=== PATIENT | male | born 1985 | race Two or more races ===

== ENCOUNTER 2018-08-27 08:20 | Emergency (ER) | payer MEDICAID ==
[~2018-08-27] VITALS: Ht 172.7 cm; Wt 105.0 kg
[2018-08-27 08:21] VITALS: BP 145/91
[2018-08-27] MEDS ORDERED: AZIT500T PO (08:50)
[2018-08-27] MEDS ORDERED: HYDR-3965 PO (08:52)
[2018-08-27] MEDS ORDERED: HYDROcodone/acetaminophen 10/325mg tab PO ONE (09:00)
== END 2018-08-27 09:11 | disposition home or self-care (01) ==
LOC: ER 08:20
DX: H66.92 Otitis media, unspecified, left ear (principal); R07.89 Other chest pain; Z88.0 Allergy status to penicillin; Z79.2 Long term (current) use of antibiotics; Z79.899 Other long term (current) drug therapy
CPT/HCPCS: 99283

== ENCOUNTER 2023-06-23 00:27 | Emergency (ER) | payer MEDICAID ==
[~2023-06-23] VITALS: Ht 172.7 cm; Wt 92.4 kg
[2023-06-23] MEDS ORDERED: HYDROmorphone 1 mg/ml syringe IM ONE (01:00)
[2023-06-23] MEDS ORDERED: ibuprofen tablet 400 MG TABLET PO ONE (01:00)
[2023-06-23] MEDS ORDERED: ondansetron 4mg rapidly disintigrating tab PO ONE (01:00)
[2023-06-23] MEDS ORDERED: clindamycin 150mg capsule PO ONE (01:00)
[2023-06-23] MEDS ORDERED: NAPR-56 PO (01:05)
[2023-06-23] MEDS ORDERED: CLIN-143 PO (01:05)
[2023-06-23] MEDS ORDERED: ACET-812 PO (01:05)
[2023-06-23] MEDS ORDERED: BENZ9GEL3 BC (01:05)
[2023-06-23 01:38] VITALS: BP 130/78; PULSE 89; RESP 18; TEMP 98.2; O2SAT 97
== END 2023-06-23 01:40 | disposition home or self-care (01) ==
LOC: ER 00:28
DX: K08.89 Other specified disorders of teeth and supporting structures (principal)
CPT/HCPCS: 96372; 99284; J1170

== ENCOUNTER 2024-09-22 11:28 | Emergency (ER) | payer MEDICAID ==
[~2024-09-22] VITALS: Ht 172.7 cm; Wt 77.6 kg
[~2024-09-22 11:28] MED LIST: ACET-812 PO; BENZ9GEL3 BC
[2024-09-22 12:47] LABS: BASOPHILS % (AUTO) 0.2 % (0-1); EOSINOPHILS # (AUTO) 0.2 X10'3 (0-0.9); EOSINOPHILS % (AUTO) 2.9 % (0-6); LYMPHOCYTES # (AUTO) 1.6 X10'3 (1.1-4.8); LYMPHOCYTES % (AUTO) 23.4 % (21-51); MEAN PLATELET VOLUME 7.2 FL (7.4-10.4); MONOCYTES # (AUTO) 0.7 X10'3 (0-0.9); MONOCYTES % (AUTO) 10.1 % (2-12); NEUTROPHILS # (AUTO) 4.4 X10'3 (1.8-7.7); NEUTROPHILS % (AUTO) 63.4 % (42-75); PLATELET COUNT 233 X10'3 (140-440)
[2024-09-22 13:05] LABS: ALANINE AMINOTRANSFERASE 128 U/L (12-78); ALBUMIN 4.2 G/DL (3.4-5.0); ALKALINE PHOSPHATASE 108 IU/L (46-116); ANION GAP 8 (8-16); ASPARTATE AMINO TRANSFERASE 90 U/L (10-37); BILIRUBIN,TOTAL 1.3 MG/DL (0.1-1.0); BLOOD UREA NITROGEN 10 MG/DL (7-18); BUN/CREATININE RATIO 13.2 (10.0-20.0); CALCIUM 9.8 MG/DL (8.5-10.1); CHLORIDE 99 MMOL/L (99-107); CREATININE 0.76 MG/DL (0.60-1.10); GLUCOSE 184 MG/DL (70-104); LIPASE 47 U/L (16-77); POTASSIUM 3.8 MMOL/L (3.5-5.1); SODIUM 139 MMOL/L (135-145); TOTAL CARBON DIOXIDE 31.6 MMOL/L (24-32); TOTAL PROTEIN 8.4 G/DL (6.4-8.2); eCRCL 126 ML/MIN; eGFR > 90 ML/MIN
[2024-09-22 13:37] LABS: MEAN CORPUSCULAR HEMOGLOBIN 34.7 PG (27.0-31.0); MEAN CORPUSCULAR VOLUME 99.4 FL (78-98); RED BLOOD COUNT 5.23 X10'6 (4.70-6.10); RED CELL DISTRIBUTION WIDTH 12.8 % (11.5-14.5)
[2024-09-22 13:40] LABS: HEMOGLOBIN 18.2 g/dl (14.0-17.9)
[2024-09-22 14:49] VITALS: BP 146/85; PULSE 100; RESP 15; TEMP 98.3; O2SAT 99
== END 2024-09-22 14:50 | disposition home or self-care (01) ==
LOC: ER 11:29
DX: R10.12 Left upper quadrant pain (principal); E11.9 Type 2 diabetes mellitus without complications; Z88.0 Allergy status to penicillin
CPT/HCPCS: 36415; 74176; 80053; 83690; 85025; 99284

== ENCOUNTER 2025-04-17 06:53 | Inpatient (IN) | payer MEDICAID ==
[~2025-04-17] VITALS: Ht 177.8 cm; Wt 70.8 kg
[2025-04-17 07:18] LABS: MEAN PLATELET VOLUME 6.9 FL (7.4-10.4); RED CELL DISTRIBUTION WIDTH 12.8 % (11.5-14.5)
--- NOTE | 2025-04-17 07:22 | RADIOLOGY REPORT ---
CHEST RADIOGRAPH Indication: CP Technique: Single frontal view of the chest was obtained COMPARISON: None FINDINGS: Lines and Tubes: None Lungs: Clear Pleura: No effusion. No pneumothorax. Cardiomediastinal contours: Unremarkable Bones: Unremarkable IMPRESSION: 1. No acute disease.
[2025-04-17 07:31] LABS: CREATININE 0.78 MG/DL (0.60-1.10); TOTAL CARBON DIOXIDE 33.1 MMOL/L (24-32); eCRCL 126 ML/MIN; eGFR > 90 ML/MIN
--- NOTE | 2025-04-17 07:35 | ELECTROCARDIOGRAPH REPORT ---
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 Mandi Quesada Measurements Intervals [place] Rate: 87 P: 23 OR: 127 QRS: 66 QRSD: 80 T: 71 QT: 341 QTc: 411 Interpretive Statements Sinus rhythm ST elev, probable normal early repol pattern Electronically Signed On 04-17-2025 7:54:[address] Mandi Quesada Please click the below link to view image of tracing.
[2025-04-17] MEDS: normal saline 1000ML IV soln IVB ONE (07:55)
--- NOTE | 2025-04-17 08:14 | Physician Documentation ---
History of Present Illness ~ Chief Complaint: Chest Pain Stated Complaint: CHEST PAINS Time Seen by MD: 06:59 OK to notify your PCP?: Yes Primary Medical Doctor: Dr. Haney Source: patient, RN/, RN notes reviewed, old records Mode of Arrival: Ambulatory Exam Limitations: no limitations HPI This 39-year-old patient was brought into bed 13 seen upon arrival. Patient states he has been off his medications for over a month. He takes insulin. Patient has been doing relatively well denies any polydipsia polyuria. This morning he woke up with some chest pain at rest felt dizzy having palpitations feeling sick also little bit nauseated but mostly chest pressure chest pain nonradiating. Patient states that he drinks daily including 15 beers which is a bit more than his baseline otherwise there is no new differences in his health. He is here for evaluation. He has no history of pancreatitis or prior problems with his alcoholism. Patient has no prior cardiac history. 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 Patient has no primary care physician at this time Medication Reconciliation Allergies: Coded Allergies: penicillin G (Verified Allergy, Severe, facial edema, 04/17/25) Scheduled Acetaminophen (Tylenol Extra Strength), 2 TABLET PO Q6H Benzocaine (Oral Analgesic), 20 BOT BC TID Past Medical History Past Medical History: Diabetes Past Surgical History: noncontributory Smoking Status: Current every day smoker Alcohol Use: Alcoholic Drug Use: none Lives with: Spouse Lives In: Home Occupation: employed Review of Systems All Other Systems at this time: Reviewed and Negative Physical Exam Vital Signs: RN Vital Signs have been reviewed: Yes, Temperature: 98.2, Source: Temporal, Heart Rate: 92, Respiratory Rate: 16, BP: 144/94, Pulse Oximetry: 99, Weight: 70.800 Oxygen Flow Rate: 0 Physical Exam General: The patient is well developed, well nourished, nontoxic appearing and is in no acute distress. Uncomfortable appearing Skin: [place], warm and dry with no rashes. HEENT: Head was normocephalic and atraumatic. Eyes - pupils equal, round, reactive to light and accommodation. Extraocular movements were intact. Conjunctivae were nonicteric. The mouth and oropharynx were clear with moist mucous membranes. There were no pharyngeal exudates or erythema. Neck: Supple and nontender. There was no jugular venous distention, lymphadenopathy, thyromegaly or masses. Chest: Clear to auscultation bilaterally without wheezes, rales or rhonchi. No accessory muscle use. No dullness to percussion. Heart: Rate regular and rhythmic. S1, S2. No murmurs. Palpation of the chest wall was normal. No rubs or thrills. Abdomen: Soft, nontender and nondistended. Positive bowel sounds. No guarding or rebound. No hepatosplenomegaly or palpable masses. Extremities: No cyanosis, clubbing or edema. The patient moves all extremities. Pulses were equal and symmetric. Neurologic: Motor sensory grossly intact Psychologic: The patient was oriented to person, place and time. The patient demonstrated appropriate judgement and insight. Progress Progress Note 11:00 a.m. discussed the case with Dr. Hickman was team Results/Orders Reviewed/noted all lab results: Yes Results/Orders Orders - SAHIL JIMENEZ MD Chest,Single View (04/17/25 06:54) Monitor (04/17/25 06:54) Saline Lock (04/17/25 06:54) Oxygen (04/17/25 06:54) Electrocardiogram (04/17/25 06:54) Hs Troponin I W Calculations (04/17/25 09:54) Normal Saline 1000ml (0.9% Sodium Chlori (04/17/25 07:50) Page Hospitalist (04/17/25 10:11) Fill Out Med Reconciliation (04/17/25 10:11) Completed Orders - SAHIL JIMENEZ MD Chest,Single View (04/17/25 06:54) Cbc/Diff (04/17/25 06:54) BMP (04/17/25 06:54) PBNP (04/17/25 06:54) Electrocardiogram (04/17/25 06:54) Hs Troponin I W Calculations (04/17/25 06:54) Hs Troponin I W Calculations (04/17/25 08:54) Drug Screen, Urine (04/17/25 07:47) Normal Saline 1000ml (0.9% Sodium Chlori (04/17/25 07:50) Aspirin 81mg Chew Tablet (Aspirin 81mg C (04/17/25 07:50) Pt Inr (04/17/25 07:47) PTT (04/17/25 07:47) Ethanol (8/18/25 07:08) Lipase (04/17/25 07:08) Liver Panel (04/17/25 07:08) MG (04/17/25 07:08) Medications Received in ER Medications (Trade) Dose Ordered Sig/Karl Route PRN Reason Start Time Stop Time Status Last Admin Dose Admin (0.9% sodium chloride (NS) 1000ml IV soln) 1,000 ml ONCE ONCE IVB 04/17/25 07:50 04/17/25 07:51 DC 04/17/25 07:55 1,000 ML Sodium Chloride 1,000 ml @ 200 mls/hr Q5H ONCE IV 04/17/25 07:50 04/17/25 12:49 04/17/25 08:45 200 MLS/HR (aspirin 81MG chew tablet) 324 mg ONCE ONCE PO 04/17/25 07:50 04/17/25 07:51 DC 04/17/25 07:53 324 MG Vital Signs 04/17/25 04/17/25 04/17/25 04/17/25 06:55 07:11 08:00 08:58 Temp 98.2 Pulse 92 76 73 Resp 16 14 16 B/P (MAP) 144/94 143/95 (111) 144/94 (111) Pulse Ox 99 100 100 O2 Flow Rate 0 0 0 04/17/25 04/17/25 09:04 10:16 Pulse 81 83 Resp 18 16 B/P (MAP) 144/94 (111) 129/92 (104) Pulse Ox 100 100 O2 Flow Rate 0 0 Laboratory Tests Test 04/17/25 07:08 04/17/25 08:40 04/17/25 09:09 White Blood Count 6.3 Red Blood Count 4.37 L Hemoglobin 14.8 Hematocrit 43.0 Mean Corpuscular Volume 98.5 H Mean Corpuscular Hemoglobin 33.9 H Mean Corpuscular Hemoglobin Concent 34.4 Red Cell Distribution Width 12.8 Platelet Count 217 Mean Platelet Volume 6.9 L Neutrophils (%) (Auto) 37.8 L Lymphocytes (%) (Auto) 43.3 Monocytes (%) (Auto) 11.5 Eosinophils (%) (Auto) 7.0 H Basophils (%) (Auto) 0.4 Neutrophils # (Auto) 2.4 Lymphocytes # (Auto) 2.7 Monocytes # (Auto) 0.7 Eosinophils # (Auto) 0.4 Basophils # (Auto) 0.0 CBC Comment Prothrombin Time 10.9 INR International Normalized Ratio 1.1 Activated Partial Thromboplast Time 21 L Coagulation Comments Sodium Level 141 Potassium Level 3.5 Chloride Level 101 Carbon Dioxide Level 33.1 H Anion Gap 7 L Blood Urea Nitrogen 14 Creatinine 0.78 Estimated GFR/1.73 m2 > 90 BUN/Creatinine Ratio 17.9 Glucose Level 131 H Calcium Level 9.0 Magnesium Level 2.2 Total Bilirubin 0.6 Direct Bilirubin 0.1 Aspartate Amino Transf (AST/SGOT) 23 Alanine Aminotransferase (ALT/SGPT) 24 Alkaline Phosphatase 108 Troponin I High Sensitivity < 4 L < 4 L Troponin I High Sens Percent Delta Troponin I Hi Sens Absolute Change Pro-B-Type Natriuretic Peptide < 30 Total Protein 7.1 Albumin 3.4 Globulin 3.7 Albumin/Globulin Ratio 0.9 L Lipase 37 Chemistry Comments Ethyl Alcohol Level < 10 Urine Opiates Screen Negative Urine Methadone Screen Negative Urine Fentanyl Screen Negative Urine Barbiturates Screen Negative Urine Phencyclidine Screen Negative Urine Amphetamines Screen Negative Urine Benzodiazepines Screen Negative Urine Cocaine Screen Negative Urine Cannabinoids Screen Positive Drug Screen Comment Re-Evaluation Re-Evaluation : Re-Evaluation: Improved, Unchanged Progress Patient was seen and examined. Patient is given reassurance. Patient's laboratory work was obtained fluids were started. Patient received aspirin for his chest pain. Patient received aspirin. Became a little bit nauseated received Zofran later. EKG did show some abnormalities hyperacute T-waves which is somewhat concerning for cardiovascular etiology. Initial laboratory work CBC is within normal limits MCV slightly elevated at 98.5. Coagulation within normal limits. Chemistry is within normal limits. Alcohol is also within normal limits. Patient has normal. Patient has no history of alcoholic gastritis or esophagitis wishes most likely patient has etiology however the patient does have some slight ST-T changes as well as some peaked T-waves concerning for cardiac ischemia. Patient is a diabetic and high-risk for peripheral vascular disease. Additionally patient is having ectopy which is new for the patient and presented with chest pain which is now resolved. He is now complaining of his palpitations. Patient will be admitted to the hospitalist service with negative troponins no anticoagulation was provided at this time. Continuous secured entrance monitor interpretation shows normal sinus rhythm heart rate 90s, no ectopy, normal, my interpretation. Patient is now having some additional ectopy and palpitations, abnormal, my interpretation. Pulse oximetry monitor interpretation shows normal oxygenation at 99% room air, normal, my interpretation. 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 Sahil Jimenez Measurements Intervals [place] Rate: 87 P: 23 IA: 127 QRS: 66 QRSD: 80 T: 71 QT: 341 QTc: 411 Interpretive Statements Sinus rhythm ST elev, probable normal early repol pattern Electronically Signed On 04-17-2025 7:54:[address] Sahil Jimenez Please click the below link to view image of tracing. EKG Date and Time:04/17/25656 Chest X-Ray : Additional Comments CHEST RADIOGRAPH Indication: CP Technique: Single frontal view of the chest was obtained COMPARISON: None FINDINGS: Lines and Tubes: None Lungs: Clear Pleura: No effusion. No pneumothorax. Cardiomediastinal contours: Unremarkable Bones: Unremarkable IMPRESSION: 1. No acute disease. Heart Score: Heart Score Response (Comments) Value History Moderate Suspicious 1 EKG Repolarization Disturb 1 Age <45 0 Risk Factors >3 or Hx ASHD 2 Troponin Normal limit 0 Total 4 Medical Decision Making Additional info obtained from: old records Differential Dx:Considerations: Include: angina, aortic dissection, chest wall pain, cholelithiasis, CHF, costochondritis, esophageal reflux/spasm, gastritis, myocardial infarction, pericarditis, pancreatitis, pneumonia, pulmonary embolus, other Departure Disposition: ADMITTED INPATIENT Admitted to Inpatient Unit: yes, to hospitalist Admission Level of Care: Med/Surg with Tele Impression: Primary Impression: Chest pain at rest Additional Impressions: Unstable angina Diabetes Qualified Codes: E11.69 - Type 2 diabetes mellitus with other specified complication Alcoholism Acute electrocardiogram changes Condition: Guarded Referrals: NO PRIMARY CARE PROVIDER (PCP) Education Educated: Patient Educated regarding: diagnosis Signature Scribe Signature: / Attestation: The note accurately reflects work and decisions made by me.Sahil Jimenez MD 04/17/25 08:09 SAHIL JIMENEZ MD Apr 17, 2025 08:14
[2025-04-17 08:16] LABS: APTT 21 SECONDS (22-32); INR 1.1 INR
[2025-04-17 08:32] LABS: ETHANOL < 10 MG/DL (<10)
[2025-04-17 08:33] LABS: PRO BRAIN NATRIURETIC PEPTIDE < 30 PG/ML (0-125)
[2025-04-17] MEDS: normal saline 1000ml 1,000 ML IV ONE (08:45)
[2025-04-17 09:09] LABS: URINE AMPHETAMINE SCREEN NEGATIVE (Neg); URINE BARBITUATE SCREEN NEGATIVE (Neg); URINE BENZODIAZEPINES SCREEN NEGATIVE (Neg); URINE CANNABINOID SCREEN POSITIVE (Neg); URINE COCAINE SCREEN NEGATIVE (Neg); URINE METHADONE SCREEN NEGATIVE (Neg); URINE OPIATE SCREEN NEGATIVE (Neg); URINE PHENCYCLIDINE SCREEN NEGATIVE (Neg)
[2025-04-17] MEDS ORDERED: magnesium hydroxide 30ml (MOM) UD suspension PO PRN (11:00)
[2025-04-17] MEDS ORDERED: potassium Cl 20 mEq SR tablet PO PRN ×2 (11:00)
[2025-04-17] MEDS ORDERED: mag hydrox/Alum hydrox/simeth 30ml oral suspension PO PRN (11:00)
[2025-04-17] MEDS ORDERED: magnesium Cl slow-release 64mg tablet PO PRN (11:00)
[2025-04-17] MEDS ORDERED: magnesium sulf-water 2g/50mL 50 ML IV PRN (11:00)
[2025-04-17] MEDS ORDERED: magnesium sulf-water 4G/100mL 100 ML IV PRN (11:00)
[2025-04-17] MEDS ORDERED: ondansetron/PF 4mg/2ml inj IV PRN (11:00)
[2025-04-17] MEDS ORDERED: potassium Cl 40MEQ/1/2NS 520ml 520 ML IV PRN (11:00)
[2025-04-17] MEDS ORDERED: regadenoson 0.4mg/5ml syringe IV ONE (14:10)
[2025-04-17] MEDS ORDERED: metoprolol tartrate 1mg/ml inj IV PRN (14:10)
[2025-04-17] MEDS ORDERED: PERFLUTREN PROTEIN-A MICROSPHR (Optison) 0.22 MG/ML 3ML VIAL IV ONE (14:10)
[2025-04-17] MEDS ORDERED: regadenoson 0.4mg/5ml syringe IV PRN (14:10)
[2025-04-17] MEDS ORDERED: aminophylline 250mg/10ml inj. IV PRN (14:10)
[2025-04-17] MEDS: aspirin 81mg, enteric-coated 1 TAB TABLET.DR PO SCH (14:30)
[2025-04-17 14:49] VITALS: RESP 16; O2SAT 100
[2025-04-17] MEDS ORDERED: GABA-1405 PO (14:53)
[2025-04-17 15:00] VITALS: BP 135/84; PULSE 87; RESP 13; TEMP 97.3; O2SAT 100
[2025-04-17 15:11] VITALS: BP 132/91; PULSE 84; RESP 16; TEMP 97.7; O2SAT 100
--- NOTE | 2025-04-17 15:13 | ELECTROCARDIOGRAPH REPORT ---
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 SURENDRA Coto Measurements Intervals [place] Rate: 93 P: 48 SD: 120 QRS: 63 QRSD: 75 T: 58 QT: 343 QTc: 427 Interpretive Statements Sinus rhythm ST elev, probable normal early repol pattern Electronically Signed On 04-18-2025 9:23:[address] SURENDRA Coto Please click the below link to view image of tracing.
[2025-04-17] MEDS: pantoprazole 40MG/NS 100ML BAG 100 ML IV SCH (17:27)
--- NOTE | 2025-04-17 17:31 | HISTORY AND PHYSICAL-Residence ---
History & Physical Providers to CC Resident Creating Document: JOSEPH GONZALEZ, RES ~ History of Present Illness Primary Medical Doctor: Dr. Haney Reason for Admit\Complaint: chest pain History of Present Illness A 39 years old male patient with past medical history of peptic ulcer disease, peripheral neuropathy, type 1 diabetes mellitus presented to ER with chief complaints of chest pain. Patient reports that squeezing type of chest pain started when he woke up today morning , gradually increasing in intensity with severity 7/10, radiating to left shoulder associated with abdominal pain, nausea and dizziness. No aggravating or relieving factors. He denies any palpitations, shortness of breath, syncope, vomitings, constipation, fatigue, altered level of consciousness, myalgias, rash, arthralgias. Allergies: Coded Allergies: penicillin G (Verified Allergy, Severe, facial edema, 04/17/25) Home Medications Home Medications Active Tylenol Extra Strength (Acetaminophen) 500 Mg Tablet 2 Tablet PO Q6H Oral Analgesic (Benzocaine) 20 % Gel..gram. 20 Bot BC TID 7 Days Reported Gabapentin 600 Mg Tablet 1 Tab PO Q8H 30 Days Past Medical History Past Medical History Peripheral Neuropathy Peptic ulcer disease Type 1 diabetes mellitus Past Surgical History Surgical History Comment None Past Social History Social History Comment Nonsmoker Alcoholic, drinks 15 beers daily since 20 years Smokes marijuana occasionally Denies any other recreational drug use Independent of ADLs He lives with at home Disabled Alcohol Use: Alcoholic Drug Use: None Lives with: Spouse Lives In: Home Occupation: employed ROS All Other Systems: Reviewed and Negative ROS Constitutional: No fever, chills, dizziness, weight gain or loss Eyes: No pain, erythema, discharge, blurring of vision ENT: No sore throat, epistaxis, tinnitus Cardiovascular: Reports chest pain, dizziness, no palpitations, syncope, lower extremity edema, paroxysmal nocturnal dyspnea Respiratory: No Shortness of breath and cough, No hemoptysis. Gastrointestinal: Reports Abdominal pain and nausea, no vomiting. Normal appetite. No constipation,diarrhea, hematemesis, melena or fresh blood Musculoskeletal: No chronmic edema. Integumentary: No change in skin, hair, nails. No swelling, bruising, abrasions Neurologic: No weakness,No headache, neck pain, numbness or tingling of the extremities, Psychiatric: No delusions, depression, loss of interest in normal activity or change in sleep pattern, hallucinations, suicidal ideations Endocrine: Reports fatigue, no weakness. polydipsia, polyuria, change in appetite, heat or cold intolerance, sweating, dry skin Hematological: No bleeding, petechiae, bruising Allergies: No asthma or urticaria Exam Vitals: Vital Signs Date Time Temp Pulse Resp B/P (MAP) Pulse Ox O2 Delivery O2 Flow Rate FiO2 04/17/25 15:11 97.7 84 16 132/91 (105) 100 Room Air 04/17/25 12:33 0 General: Awake , alert and oriented to time,place, person, moderately built, in mild distress HEENT: Atraumatic, normocephalic, PEERLA, anicteric sclera ; pink conjunctiva Neck: Trachea midline. Supple, normal range of motion, no JVD Cardiac: S1, S2 heard,Regular rate and rhythm, no murmurs heard. Chest and Respiratory: Equal breath sounds bilaterally, no tachypnea, wheezing and ronchi are present. Chest wall is symmetric and without deformity. Non reproducible chest pain Abdomen: Abdomen symmetric, mild abdominal pain left upper quadrant,no tenderness, Gerard's sign negative. normal bowel sounds x4 quadrant, normoactive, no hepatosplenomegaly MSK: Range of motion of all extremities are normal. There is no joint pain or joint swelling or joint erythema. There is no muscle pain or tenderness or swelling. Extremities: warm, well-perfused, No cyanosis, clubbing or edema, 2+ pulses felt Neurological: Speech is clear, alert, and oriented x 4. No sensory or motor deficits. Cranial nerves II-XII intact. Skin: Warm and dry Psychiatry: Affect and mood are normal Diagnostic Data Last Recorded Lab Results: 04/17/25 0708 04/17/25 0708 Diagnostic Data: Laboratory Tests Test 04/17/25 07:08 Prothrombin Time 10.9 SECONDS (9.0-12.0) INR International Normalized Ratio 1.1 INR Activated Partial Thromboplast Time 21 SECONDS (22-32) L Coagulation Comments Advance Care Planning Advanced Care plannin - 30 Minutes (Full code) Additional Plan Chest Pain Rule out acute coronary syndrome Possible unstable angina Pain was improved with three doses of sublingual nitroglycerin o.4 mg Blood pressures are mildly elevated, started on carvedilol 3.125 mg p.o. b.i.d. daily EKG showed nonsignificant ST elevations in V2, V3 leads Troponin and proBNP levels are normal Planned for Lexiscan and echocardiogram tomorrow. Started on aspirin 81 mg p.o. once daily Follow-up with lipid panel Continue telemetry monitoring Acute Gastritis History of peptic ulcer disease Started on IV Protonix 40 mg once daily Alcohol use disorder Ordered substance use navigator conference services manager was consulted Patient is on severe alcohol withdrawal protocol. Continue daily supplementation with IV thiamine and folic acid. Ativan and Haldol for restlessness and agitation. Peripheral neuropathy Continue on home medication gabapentin 600 mg q.8h Type 1 diabetes mellitus Patient stopped taking Insulin because HB A1c was around 6 HB A1c is 6.1 Monitor blood glucose levels. Code status: full code GI prophylaxis: IV Protonix Diet: Regular diet Prognosis: Guarded DVT prophylaxis: Heparin Disposition: A 39 years old male patient is admitted for evaluation of chest pain. Continue telemetry monitoring. We will continue the medical management. Joseph Gonzalez MD Internal Medicine Resident, PGY 1 Date of Service: Apr 17, 2025 Billing Provider: MARISELA LOGAN MD,JOSEPH CORMIER, RES Apr 17, 2025 17:31
[2025-04-17 18:00] VITALS: BP 125/79; PULSE 88; RESP 16; TEMP 97.7; O2SAT 100
[2025-04-17] MEDS ORDERED: docusate sod 100mg capsule PO SCH (20:00)
[2025-04-17] MEDS ORDERED: K and/or MAG REPLACEMENT MC SCH (20:00)
[2025-04-17] MEDS ORDERED: heparin, porcine 5000 units/ml vial SQ SCH (20:00)
[2025-04-17] MEDS ORDERED: dextrose 50%-water 50ml dispensing syringe IV PRN (20:40)
[2025-04-17] MEDS ORDERED: folic acid 1mg/0.2ml inj IV SCH (20:40)
[2025-04-17] MEDS ORDERED: haloperidol lactate 5mg/ml inj IM PRN (20:40)
[2025-04-17] MEDS ORDERED: thiamine 100mg/ml 2ml inj. IV SCH (21:00)
== END 2025-04-17 19:50 | disposition left against medical advice (07) | DRG 198 ==
LOC: ER 06:53 → ED HOLD 10:58 → EDBEDREQ 12:46 → PCU 3S 13:27
PROVIDERS: ADMIT Family Medicine; ATTEND Family Medicine
DX: I24.9 Acute ischemic heart disease, unspecified (principal); E11.42 Type 2 diabetes mellitus with diabetic polyneuropathy; E11.69 Type 2 diabetes mellitus with other specified complication; F17.210 Nicotine dependence, cigarettes, uncomplicated; Z53.29 Procedure and treatment not carried out because of patient's decision for other reasons; F10.20 Alcohol dependence, uncomplicated; Y90.9 Presence of alcohol in blood, level not specified; K29.00 Acute gastritis without bleeding; Z79.899 Other long term (current) drug therapy
CPT/HCPCS: 36415; 71045; 80048; 80076; 80305; 80320; 82948; 83036; 83690; 83735; 83880; 84484; 85025; 85610; 85730; 87081; 93005; 96361; 96365; 96375; 99285; G0378; J2470; J7030